=== PATIENT | male | born 1980 | race Caucasian/White ===

== ENCOUNTER 2018-06-02 17:33 | Inpatient (IN) | payer BC, OTHER ==
[~2018-06-02] VITALS: Ht 177.8 cm; Wt 72.6 kg
--- NOTE | 2018-06-02 18:50 | NUR ---
Pre-Assessment Patient is in intake office, he is fidgety and hyperverbal and states he is a little " jumpy " due to nasal inhalation of 2 lines of fentanyl ( approx 0.05mcg) 2 hours prior to arriving at approximately 4pm today 06/02/18. He is disheveled and unkempt but is able to provide history. Vital Signs: BP 130/63, HR 125, RR 18, O2 96%, T 97.8, pain is 0/10 he stands 5ft 10" tall and weighs 160lbs per standing scale. No Known allergies, full code, Reg diet He is here to withdraw from Methadone and Fentanyl Policies regarding confiscation of any controlled substances found in his belongings or person understood. No home medication brought or taken. Patient will be admitted to the unit and to room 314 under the care of Dr Rg Escobar
[2018-06-02] MEDS ORDERED: MIRALAX 17 GM POWD.PACK PO PRN (19:45)
[2018-06-02] MEDS ORDERED: ONDANSETRON 4 MG/2 ML VIAL IM PRN (19:45)
[2018-06-02] MEDS ORDERED: IBUPROFEN 600 MG TABLET PO PRN (19:45)
[2018-06-02] MEDS ORDERED: ONDANSETRON ODT 4 MG TAB.RAPDIS SL PRN (19:45)
[2018-06-02] MEDS ORDERED: MAGNESIUM HYDROXIDE 30 ML LIQUID UDC PO PRN (19:45)
[2018-06-02] MEDS ORDERED: ACETAMINOPHEN 325 MG TABLET PO PRN (19:45)
[2018-06-02] MEDS ORDERED: MAG HYDROX/AL HYDROX/SIMETH 30 ML LIQUID UDC PO PRN (19:45)
[2018-06-02] MEDS ORDERED: HYDROXYZINE PAMOATE 25 MG CAPSULE PO PRN (19:45)
[2018-06-02] MEDS ORDERED: DICYCLOMINE HCL 20 MG TABLET PO PRN (19:45)
[2018-06-02] MEDS ORDERED: LOPERAMIDE HCL 2 MG CAPSULE PO PRN ×2 (19:45)
[2018-06-02 20:00] VITALS: BP 130/63
--- NOTE | 2018-06-02 20:00 | NUR ---
Admission Note: Patient is a 38 yr old male who was admitted to [facility] @ 1913 on 06/02/18 for a medically supervised withdrawal from Opiates ( Methadone, Fentanyl and Heroin), he also states he has used Methamphetamines, he arrived here from [place] in [facility]. He states he last had Methadone last 05/30/18 @ 0600- 60mg PO, He snorted 2 lines ( approx 0.05mcg) of Fentanyl 2 hours prior to arriving at [facility] ( approximately @ 1700 06/02/18)he also states he inhaled 0.5mg of Methamphetamines @ 1600 today 06/02/18. He is hyperverbal and antsy, fidgeting and restless, he is unkempt and disheveled. When asked why he uses these substances he states" I started smoking Marijuana when I was 13 because I was curious, I had low self esteem and was a shy kid and it gave me an escape and also helped me fit in with my peers but I thought I could control it and stop when I wanted to but that was not the case, I started to use harder drugs and I started to run amuck, I had a bad attitude and got into a lot of trouble, I would steal from my friends, from my family from stores to feed my habit, it got to a point that I didn't care who I stole from as long as I could buy my drugs. He states that over the past 25yrs he has been to at least 15 rehabs ( the last one being [facility] from 01/19/18 to 02/28/18) and that he does have a lot of good sober friendships he has made over the years but he has burned so many bridges with them that he hopes he can make it up to them and do right. He says that the cause of his relapses is impulsiveness and the inability to deal with cravings. He really wants to be successful at this attempt at sobriety as he fears he may lose his job working at [employer] which he really enjoys. He states that the reason that he relapses is that he is impulsive and doesnt think before he takes any action and that there are too many triggers and he realizes that he needs to learn new coping skills, to find enjoyable activities that don't involve using drugs, he needs to learn how to cope with negative feelings and low self esteem and his social anxiety that led him to use drugs to give him a boost of self confidence. He would like to go to a 30 day Inpatient [facility] and learn how to cope with all the negative feelings, low self esteem and to learn new coping skills to make him a better member of society. Withdrawal Symptoms for him include restlessness, sweats, cramps, Insomnia, no motivation and a feeling of unhappiness. Currently he is experiencing withdrawal symptoms of blurred vision, diaphoresis, tachycardia, clammy skin, flushing, inability to sit still , tremors, dilated pupils and increased anxiety. Initial COWS 17 and patient states he is in active withdrawal and would like to start the Subutex induction as soon as possible. He states that he has had 2 accidental overdoses from methamphetamines in 2007 in which 1 resulted in him having a seizure in the back of a police car, he says he was foaming at the mouth and writhing and convulsing and thanks god he was in the police car and taken to a hospital. He has a past medical history of Hepatitis C which has been successfully treated No psychiatric complications, NO PCP, he has had suicidal thoughts in the past but did not have an active plan. Substance Use History: Methadone 60mg PO daily x 12 years last taken 05/30/18 @ 0600 Fentanyl 2 lines ( approx 0.05mcg) daily for past 3 months last consumed 06/02/18 @ 1700 Heroin IV 0.5 mg daily but has not used for 2 weeks. Methamphetamines 0.5mg Insufflation 3 x month last used 06/02/18 @ 1600 He does not take any prescription or over the counter medications nor has he brought any with him. Lung sounds clear throughout, no cough or SOB, BS present in all 4 quadrants , last BM 06/02/18 @ 1950 He has been oriented to the unit and understands the policies and procedures of [facility] and is in agreement to the rules. Urine drug screen obtained and Lab on way to draw blood for toxicology. Addendum: 06/03/18 at 0621 by XIOMARA YBARRA RN *Correction to dosage: 0.5G of heroin and 0.5G of methamphetamines NOT mg *
[2018-06-02 20:15] LABS: *AMPHETAMINE, URINE POSITIVE (NEGATIVE); *BARBITURATE, URINE NEGATIVE (NEGATIVE); *CANNABINOID, URINE NEGATIVE (NEGATIVE); *COCCAINE, URINE NEGATIVE (NEGATIVE); *OPIATE, URINE NEGATIVE (NEGATIVE); *PHENCYCLIDINE SCREEN,URINE NEGATIVE (NEGATIVE)
--- NOTE | 2018-06-02 20:30 | NUR ---
PRN Subutex/ Ativan PRN Subutex 4mg SL given for COWS score of 19 PRN Ativan 2mg PO given for CIWA 23 Patient has started to withdraw and is exhibiting symptoms: diaphoresis, clammy skin, runny nose, blurred vision, tachycardia, flushing, inability to sit still, fidgeting and tremors.
--- NOTE | 2018-06-02 20:30 | NUR ---
COWS 19/ CIWA Patient is in active withdrawal , last methadone use was 3 days ago 05/30/18 @ 0600 - 60mg PO fentanyl 0.05mcg was last consumed at 1600 today via nasal inhalation withdrawal symptoms include, blurred vision, extreme restlessness, runny nose, sensitivity to light and sound, diaphoresis, dilated pupils and bilateral hand tremors. Will initiate Subutex induction and Ativan per MD protocol
[2018-06-02] MEDS: LORAZEPAM 1 MG TABLET PO PRN (20:31)
[2018-06-02] MEDS: BUPRENORPHINE HCL 2 MG TAB.SUBL SL PRN (20:32)
[2018-06-02 21:14] LABS: BASOPHILS # (AUTO) 0.1 K/uL (0.0-8.0); BASOPHILS % (AUTO) 0.7 % (0.0-2.0); EOSINOPHILS # (AUTO) 0.1 K/uL (0.0-0.7); EOSINOPHILS % (AUTO) 0.7 % (0.0-7.0); HEMOGLOBIN 14.4 g/dL (12.5-16.3); LYMPHOCYTES # (AUTO) 3.3 K/uL (20.0-40.0); LYMPHOCYTES % (AUTO) 26.8 % (20.5-51.5); MEAN CORPUSCULAR HGB CONC 34 g/dL (32.5-36.3); MEAN CORPUSCULAR VOLUME 84.6 fL (73.0-96.2); MONOCYTES # (AUTO) 0.9 K/uL (2.0-10.0); MONOCYTES % (AUTO) 7.5 % (0.0-11.0); NEUTROPHILS % (AUTO) 64.3 % (38.5-71.5); PLATELET COUNT (AUTO) 234 K/uL (152-348); RED BLOOD CELL COUNT(AUTO) 4.97 MIL/uL (4.06-5.63); WHITE BLOOD COUNT (AUTO) 12.4 K/uL (3.6-10.2)
[2018-06-02 21:30] LABS: ETHANOL < 3 MG/DL (0-0)
--- NOTE | 2018-06-02 21:30 | NUR ---
PRN Reassess COWS now 14 CIWA 19 Patient is resting in bed, easily arousable to name, medications have taken effect and are alleviating withdrawal symptoms, will continue to monitor.
[2018-06-02 21:35] LABS: ALANINE AMINOTRANSFERASE 129 U/L (16-63); ALKALINE PHOSPHATASE 79 U/L (50-136); AMYLASE 53 U/L (25-115); ASPARTATE AMINOTRANSFERASE 172 U/L (15-37); BILIRUBIN,TOTAL 0.6 mg/dL (0.2-1.0); CARBON DIOXIDE 29 mmol/L (21-32); CHLORIDE 99 mmol/L (98-107); CREATININE 1.4 mg/dL (0.6-1.3); GLUCOSE 101 mg/dL (74-106); LIPASE 129 U/L (73-393); POTASSIUM 3.8 mmol/L (3.5-5.1); TOTAL PROTEIN, SERUM 7.7 g/dL (6.4-8.2); UREA NITROGEN, BLOOD 31 mg/dL (7-18)
[2018-06-02 21:46] LABS: THYROID STIMULATING HORMONE 3.575 mIU/mL (0.358-3.740)
--- NOTE | 2018-06-03 | NUR ---
COWS / VS deferred, patient is in a deep sleep, breathing unlabored, RR 15
[2018-06-03 04:00] VITALS: BP 110/78
--- NOTE | 2018-06-03 04:00 | NUR ---
COWS 16 PRN Subutex 4mg SL given per protocol, withdrawal symptoms present as runny nose, teary eyes, diaphoresis, tremors, goosebumps , stomach cramps and restlessness
--- NOTE | 2018-06-03 04:10 | NUR ---
PRN Subutex/Ativan PRN Subutex 4mg SL given per protocol, withdrawal symptoms present as runny nose, teary eyes, diaphoresis, tremors, goosebumps , stomach cramps and restlessness Ativan 2mg PO given for CIWA 18 and s/s of withdrawal as noted above
[2018-06-03] MEDS: BUPRENORPHINE HCL 2 MG TAB.SUBL SL PRN (04:13)
[2018-06-03] MEDS: LORAZEPAM 1 MG TABLET PO PRN (04:13)
--- NOTE | 2018-06-03 05:10 | NUR ---
PRN Reassess Patient has fallen back into a sound sleep, medications effective, breathing even and unlabored.Call light within reach
--- NOTE | 2018-06-03 07:19 | NUR ---
End of Shift: Patient is a 38 yr old male who was admitted to [facility] on 06/02/18 for a medically supervised withdrawal from Opiates ( Methadone, Fentanyl and Heroin ) He has NKA, Full code, regular diet, seizure and fall precautions. PRN medications given on this shift : Subutex 4mg SL x2, Ativan 2mg PO x2. Patient's withdrawal symptoms have included restlessness, lethargy, stuffy nose, teary eyes, dilated pupils, diaphoresis and anxiety and agitation. His last COWS was 16 @ 0400. He had a fluid intake of 1500ML,3 Voids and 1 BM and he slept for 8 hours. No taper has been placed, Dr Escobar will assess patient today, PRN medication available. Continue to follow MD plan of care and offer support as needed. Endorsed to day shift nurse.
--- NOTE | 2018-06-03 07:36 | NUR ---
START OF SHIFT Pt is a 38 yr old male, admitted on 06/02/18 for medically supervised withdrawal from Methadone and Fentanyl. Pt is on PRN's for s/s of w/d. Received report from weight shifter nurse. Pt received Subutex 4mg SL PRN x2 and Ativan 2mg PO PRN x2 during the night. Last COWS score was 16 at 0400. Pt slept for 8 hrs. Pt is currently in bed sleeping with respirations even and unlabored. Skin is intact, warm and moist to touch. Pt's room is noted disheveled with multiple open food wrappers on bedside table. Safety precautions observed. Call light is within reach. Will continue to monitor.
[2018-06-03 08:00] VITALS: BP 118/72
[2018-06-03] MEDS ORDERED: TUBERCULIN,PURIF.PROT.DERIV. 5 TU/0.1 ML TEST ID ONE (09:00)
--- NOTE | 2018-06-03 09:30 | NUR ---
COWS 14 Pt is noted with restlessness and is shifting in bed, fine tremors are seen. Pt is c/o feeling tired and states, "I haven't been sleeping well, plus I'm coming down from Meth". Pt is c/o anxiety, stuffy nose, sweats and chills. COWS score was 14. Encouraged increase fluid intake for hydration. Will continue to monitor.
[2018-06-03] MEDS: MULTIVITAMINS,THERAPEUTIC TABLET PO SCH (09:36)
--- NOTE | 2018-06-03 11:16 | NUR ---
Clarification of Methadone Use History Patient states that he has been using Methadone 60mg PO daily for the past 3 months. He was in treatment at [facility] from 01/09/18-02/28/18. He did not use any substances while he was there, but relapsed immediately upon discharge. Patient first began using Methadone 12 years ago.
[2018-06-03 12:00] VITALS: BP 125/67
--- NOTE | 2018-06-03 12:00 | NUR ---
COWS SCORE 11 Pt is observed with anxiety m/b difficulty staying still. Pt is c/o restlessness, sweats, chills, stuffy nose, fatigue and loss of appetite. COWS score was 11. Pt is noted disheveled with dirty hands. Pt hands are also noted with non-pitted edema. Will continue to f/u with Subutex 4mg SL as scheduled at 1300. Encouraged increase fluid intake for hydration.
[2018-06-03] MEDS: BUPRENORPHINE HCL 2 MG TAB.SUBL SL SCH ×3 (12:57→20:54)
[2018-06-03] MEDS ORDERED: 5 DAY TAPER BUPRENORPHINE -SERENITY PROTOCOL SL PRN (13:00)
[2018-06-03 16:00] VITALS: BP 100/55
--- NOTE | 2018-06-03 19:13 | NUR ---
END OF SHIFT Pt is a 38 yr old male, AA&Ox4. Pt was admitted on 06/02/18 for medically supervised withdrawal from Methadone and fentanyl and started on 5 day Subutex taper as ordered. Pt has been observed with increase fatigue and remained in bed throughout the day. Pt was observed with restlessness, fidgety, fine tremors on BUE, stuffy nose, sweats and chills. Pt was also c/o anxiety. No PRNs were given. Pt was noted with non-pitted edema on both hands, MD was made aware with orders of Labs to be drawn in the morning. Pt was encouraged increase fluid intake for hydration. Last COWS score was 8 at 1600. Safety precautions observed. Call light is within reach. Endorsed to police shift commander nurse to continue with care.
--- NOTE | 2018-06-03 19:30 | NUR ---
START OF SHIFT Pt is a 38 y/o male admitted on 06/02/18 for opiate withdrawal. Pt will continue a 5 day Subutex taper. Upon rounds Pt was found in room laying in bed watching TV. Pt is isolative and is withdrawn. Pt presents with anxiety, agitation, flushed skin, and is restless. Last COWS 8. No PRN medication were given during day shift. Scheduled medication are due. Safety measures in place. Call light within reach. Will continue to monitor.
[2018-06-03 20:00] VITALS: BP 113/57
--- NOTE | 2018-06-03 20:00 | NUR ---
COWS 8 Pt presents with anxiety, agitation, flushed skin, and is restless. No other complaints by the Pt. No signs of acute distress noted. Safety measures in place. Call light within reach. Will continue to monitor.
--- NOTE | 2018-06-04 | NUR ---
COWS DEFERRED AND VITAL SIGNS REFUSED Patient is noted in bed with eyes closed. Breathing even and non labored. COWS and vital signs not able to be completed per order. Safety measures in place. Call light within reach. Will continue to monitor.
--- NOTE | 2018-06-04 04:00 | NUR ---
COWS DEFERRED AND VITAL SIGNS REFUSED Patient is noted in bed with eyes closed. Breathing even and non labored. COWS was deferred and vital signs were refused not able to be completed per order. Safety measures in place. Call light within reach. Will continue to monitor.
--- NOTE | 2018-06-04 06:59 | NUR ---
END OF SIFT Pt is a 38 y/o male admitted on 06/02/18 for opiate withdrawal. Pt will continue a 5 day Subutex taper. Pt presented with anxiety, agitation, flushed skin, and restlessness. Last COWS 8. No PRN medication were given during shift. Pt slept 10 hours. Intake 1000 ml, void 2, stool 0. Safety measures in place. Call light within reach. Pt's needs have been met. Endorsed to day shift nurse.
--- NOTE | 2018-06-04 07:35 | NUR ---
START OF SHIFT Pt is a 38 yr old male, AA&Ox4. pt was admitted on 06/02/18 for medically supervised withdrawal from methadone and fentanyl and is on 5 day Subutex taper as ordered. Received report from night time nanny nurse. No PRN's were given during the night. Last COWS score was 8 and pt slept for 10 hrs. Pt states of sleeping well during the night but woke up anxious. Pt states of feeling anxious and depressed this morning and states he is afraid of losing his job. Pt is noted fidgety and is constant shifting in bed. Pt is observed disheveled and odorous and remains in dirty clothes. Pt was encouraged to shower. Multiple open food wrappers were on bedside table and on the floor. safety precautions observed. Call light is within reach. Will continue to monitor.
[2018-06-04 08:00] VITALS: BP 110/64
[2018-06-04 08:06] LABS: BILIRUBIN,TOTAL 0.4 mg/dL (0.2-1.0); POTASSIUM 3.7 mmol/L (3.5-5.1); TOTAL PROTEIN, SERUM 6.5 g/dL (6.4-8.2)
[2018-06-04 08:06] LABS: HEPATITIS B SURFACE AG Negative (Negative)
[2018-06-04] MEDS: MULTIVITAMINS,THERAPEUTIC TABLET PO SCH (08:53)
[2018-06-04] MEDS: BUPRENORPHINE HCL 2 MG TAB.SUBL SL SCH ×3 (08:54→21:43)
[2018-06-04] MEDS ORDERED: METHOCARBAMOL 750 MG TABLET PO PRN (09:15)
[2018-06-04] MEDS ORDERED: LORAZEPAM 1 MG TABLET PO ONE (09:15)
--- NOTE | 2018-06-04 09:26 | NUR ---
ATIVAN 2MG ONE TIME Pt was noted with increase anxiety, restlessness, sweating, flushed skin, and enlarged pupils. Pt is fidgety and is constant shifting in bed. Reported to Dr. Escobar and received a telephone order for Ativan 2mg PO one time. new order was noted and carried out. Pt received Ativan 2mg PO x1 and was malik well. Pt was encouraged increase fluid intake for hydration. COWS score was 13. Pt is noted disheveled and odorous with dirty clothes on, pt was encouraged to shower. Pt agreed to shower sometime today. Safety precautions observed. Will continue to monitor.
--- NOTE | 2018-06-04 10:36 | NUR ---
ATIVAN RE-ASSESSMENT Ativan 2mg PO x1 was effective. Pt is currently in bed resting with respirations even and unlabored. Pt states, "I feel a little better". Pt continues to be observed with restless legs and fidgety. Encouraged increase fluid intake. will continue to monitor.
[2018-06-04 12:00] VITALS: BP 126/75
--- NOTE | 2018-06-04 12:00 | NUR ---
COWS ASSESSMENT Pt is c/o anxiety, sweats, restlessness, and loss of appetite. Pt is noted fidgety, flushed skin, and disheveled. Last COWS score was 12. pt was encouraged increase fluid intake for hydration. Will continue to monitor.
[2018-06-04 16:00] VITALS: BP 131/84
--- NOTE | 2018-06-04 19:05 | NUR ---
END OF SHIFT Pt is a 38 yr old male, AA&Ox4. Pt was admitted on 06/02/18 for medically supervised withdrawal from Methadone and fentanyl and is on 5 day Subutex taper as ordered. Pt was ac/o anxiety, agitation, feeling depressed, restlessness, stuffy nose, loss of appetite and sweats in the morning. Subutex as scheduled was given and has been effective for s/s of w/d. Pt also received Ativan 2mg PO x1 at 0926 and was effective. Last COWS score was 10 at 1600. Pt was able to shower in the afternoon. Pt has been cooperative with medication regimen. Pt was encouraged increase fluid intake for hydration. Safety precautions observed. Call light is within reach. Endorsed to overnight caregiver nurse to continue with care.
[2018-06-04 20:00] VITALS: BP 119/77
--- NOTE | 2018-06-04 20:00 | NUR ---
Start of Shift Note Received a 38 y/o male px, admitted for medically supervised withdrawal from opiates. He also use methamphetamines. Px was placed on 5 day Subutex taper, started on 06/03/2018. Px is tolerating it. Last reported COWS 10 by AM shift nurse. During the rounds at 2000, px is asleep on bed in left side lying position. Few drinks noted on top of the bed side table. Bed on lowest position, side rails up 2x and call light within reach. Well continue to monitor.
--- NOTE | 2018-06-04 20:00 | NUR ---
COWS deferred COWS deferred due to the px is asleep, to asses if the px is awake per doctor's order. will continue to monitor.
--- NOTE | 2018-06-04 21:40 | NUR ---
COWS 10 During the assessment, px just woke. He appears anxious. Px stated that his anxiety is 3/10. Px has restless legs complained of runny nose and UT= 81. will continue to monitor
--- NOTE | 2018-06-04 21:40 | NUR ---
Px wakes up Px woke up. Px appears anxious. He is unshaven. He stated that his anxiety is mild at 3/10. He had sweats at night and runny nose. LA= 81. will continue to monitor
[2018-06-05] VITALS: BP 114/74
--- NOTE | 2018-06-05 | NUR ---
COWS deferred COWS deferred due to the px is asleep, to asses if the px is awake per doctor's order. will continue to monitor.
[2018-06-05 04:00] VITALS: BP 118/74
--- NOTE | 2018-06-05 04:00 | NUR ---
COWS deferred COWS deferred due to the px is asleep, to asses if the px is awake per doctor's order. will continue to monitor.
--- NOTE | 2018-06-05 07:05 | NUR ---
End of Shift Note During the shift, px had no complaints. He didnt receive any PRN medications. He slept most of the time. Oral intake of 1,000 ml, voided 2x, No BM. He slept for total of 10 hours. Last COWS 8. At 0630, px is asleep on bed in right side lying position. Bed on lowest position and call light within reach. Well continue to monitor. Px endorsed to AM shift nurse.
[2018-06-05 08:00] VITALS: BP 119/79
--- NOTE | 2018-06-05 08:00 | NUR ---
START OF SHIFT Pt is a 38 yr old male, AA&Ox4. pt was admitted on 06/02/18 for medically supervised withdrawal from methadone and fentanyl and is on 5 day Subutex taper as ordered. Received report from night clerk nurse. No PRN's were given during the night. Last COWS score was 8 and pt slept for 10 hrs. Pt states of sleeping well during the night but woke up anxious. Pt is noted fidgety and with restless legs. Pt is c/o muscle aches, stuffy nose, loss of appetite and sweats. COWS score this morning is 10. Pt was encouraged to drink plenty of fluids for hydration. Safety precautions observed. Call light is within reach. Will continue to monitor.
[2018-06-05] MEDS: MULTIVITAMINS,THERAPEUTIC TABLET PO SCH (08:26)
--- NOTE | 2018-06-05 08:26 | NUR ---
PRN GIVEN Pt was noted with restless legs and was c/o muscle aching on BLE. Robaxin 750mg PO PRN was given as ordered. Encouraged increase fluid intake. Will continue to monitor.
[2018-06-05] MEDS ORDERED: BUPRENORPHINE HCL 2 MG TAB.SUBL SL SCH (09:00)
--- NOTE | 2018-06-05 09:26 | NUR ---
PRN RE-ASSESSMENT Robaxin PRN was effective. Pt denies any pain on BLE but continue to be observed with restless legs. Will continue to monitor.
[2018-06-05 12:00] VITALS: BP 124/73
[2018-06-05] MEDS: BUPRENORPHINE HCL 2 MG TAB.SUBL SL SCH ×2 (15:05→21:15)
[2018-06-05] MEDS: CLONIDINE HCL 0.1 MG TABLET PO PRN (15:13)
--- NOTE | 2018-06-05 15:14 | NUR ---
PRN GIVEN Pt is c/o increase anxiety and agitation. Pt states he had to close the door to his room and yell out loud to release his anger. Pt states, "I'm mad at myself for putting myself in this position again" Pt is noted fidgety in bed. Clonidine 0.1mg PO PRN and Vistaril 25mg PO PRN was given as ordered, Encouraged increase fluid intake. Pt was encouraged to attend group therapy. Will continue to monitor.
[2018-06-05 16:00] VITALS: BP 112/66
--- NOTE | 2018-06-05 16:14 | NUR ---
PRN RE-ASSESSMENT Clonidine 0.1mg PO PRN and Vistaril 25mg PO PRN was effective. Pt states, "I feel better" Pt continues to be observed with restless legs. Will continue to monitor.
--- NOTE | 2018-06-05 18:59 | NUR ---
END OF SHIFT Pt is a 38 yr old male, AA&Ox4. Pt was admitted on 06/02/18 for medically supervised withdrawal from Methadone and Fentanyl and is on 5 day Subutex taper as ordered. Pt has been cooperative with medication regimen. Pt was encouraged to attend group therapy but pt refused to attend. Pt was ac/o anxiety, agitation, feeling depressed, restlessness, stuffy nose, loss of appetite and sweats. Pt was observed restless legs, fine tremors and flat affect. Pt was given Robaxin 750mg PO PRN, Clonidine 0.1mg PO PRN and Vistaril 25mg PO PRN. Medication was effective. Last COWS score was 8 at 1600. Pt was encouraged increase fluid intake for hydration. Safety precautions observed. Call light is within reach. Endorsed to security shift manager nurse to continue with care.
[2018-06-05 20:00] VITALS: BP 111/69
--- NOTE | 2018-06-05 20:00 | NUR ---
Start of Shift Note Received a 38 y/o male px, admitted for medically supervised withdrawal from opiates. He also use methamphetamines. Px was placed on 5 day Subutex taper, started on 06/03/2018. Px is tolerating it. Last reported COWS 8 by AM shift nurse. During the rounds at 2000, px is asleep on bed in right side lying position. Few drinks noted on top of the bed side table. Bed on lowest position and call light within reach. Well continue to monitor.
--- NOTE | 2018-06-05 21:10 | NUR ---
COWS 8 Px woke up. Px appears anxious. He is unshaven. He stated that his anxiety is mild. He has sweats and runny nose. Mild bilateral hand tremors noted. KS= 79. will continue to monitor
[2018-06-05] MEDS: diphenhydrAMINE 50 MG CAPSULE PO PRN (21:15)
--- NOTE | 2018-06-05 21:15 | NUR ---
PRN Benadryl Px received Benadryl 50 mg PO for insomnia. will continue to monitor
--- NOTE | 2018-06-05 21:45 | NUR ---
COWS 8 reassessment Px still appears anxious. He stated that his anxiety is still mild. He had sweats at night and runny nose. Mild bilateral hand tremors noted. IN= 84. will continue to monitor
[2018-06-06] VITALS: BP 102/66
--- NOTE | 2018-06-06 | NUR ---
COWS deferred COWS deferred due to the px is asleep, to asses if the px is awake per doctor's order. will continue to monitor.
[2018-06-06 04:00] VITALS: BP 109/67
--- NOTE | 2018-06-06 04:00 | NUR ---
COWS deferred COWS deferred due to the px is asleep, to asses if the px is awake per doctor's order. will continue to monitor.
--- NOTE | 2018-06-06 07:05 | NUR ---
End of Shift Note During the shift at 2114, maynor received Benadryl 50 mg PO for insomnia. It was effective. He slept most of the time. Oral intake of 900 ml, voided 2x, No BM. He slept for total of 9 hours. Last COWS 8. At 0630, px is awake and wanted to smoke. Bed on lowest position and call light within reach. Well continue to monitor. Px endorsed to AM shift nurse.
[2018-06-06 07:14] LABS: BASOPHILS % (AUTO) 0.5 % (0.0-2.0); EOSINOPHILS # (AUTO) 0.2 K/uL (0.0-0.7); EOSINOPHILS % (AUTO) 1.9 % (0.0-7.0); HEMATOCRIT 44.3 % (36.7-47.1); HEMOGLOBIN 15.3 g/dL (12.5-16.3); LYMPHOCYTES # (AUTO) 3.4 K/uL (20.0-40.0); LYMPHOCYTES % (AUTO) 34.9 % (20.5-51.5); MEAN CORPUSCULAR HEMOGLOBIN 29.2 uug (23.8-33.4); MEAN CORPUSCULAR HGB CONC 35 g/dL (32.5-36.3); MEAN CORPUSCULAR VOLUME 84.6 fL (73.0-96.2); MONOCYTES # (AUTO) 0.6 K/uL (2.0-10.0); NEUTROPHILS # (AUTO) 5.6 K/uL (1.8-8.9); NEUTROPHILS % (AUTO) 56.7 % (38.5-71.5); PLATELET COUNT (AUTO) 199 K/uL (152-348); RED BLOOD CELL COUNT(AUTO) 5.24 MIL/uL (4.06-5.63); WHITE BLOOD COUNT (AUTO) 9.9 K/uL (3.6-10.2)
[2018-06-06 07:30] LABS: BILIRUBIN,TOTAL 0.2 mg/dL (0.2-1.0); POTASSIUM 3.6 mmol/L (3.5-5.1); TOTAL PROTEIN, SERUM 6.7 g/dL (6.4-8.2)
--- NOTE | 2018-06-06 07:58 | NUR ---
Start of Shift Note: Report received from mini shifter nurse. Pt is a 38M, admitted for Opiate withdrawal. Per mini shifter nurse, pts last COWS was 8. Pt is currently on Subutex taper to manage withdrawal symptoms. Upon start of shift, pt was in bed watching TV. During assessment, pt is AOx4, breathing even and unlabored. Pt stated I had a good night of sleep. I just keep feeling depressed. Ill try to go to groups today. Pt has no complaints at this time. Pt slept for 9 hours. Bed in lowest position. Side rails up x2. Call light functioning and within reach. All needs attended and met. Will continue to monitor.
[2018-06-06 08:00] VITALS: BP 128/88
--- NOTE | 2018-06-06 08:00 | NUR ---
COWS 7 Pt noted with slight restlessness, yawning, some irritability. COWS 7
[2018-06-06] MEDS: MULTIVITAMINS,THERAPEUTIC TABLET PO SCH (08:30)
[2018-06-06] MEDS: BUPRENORPHINE HCL 2 MG TAB.SUBL SL SCH ×3 (08:31→20:55)
[2018-06-06 12:00] VITALS: BP 125/88
--- NOTE | 2018-06-06 12:00 | NUR ---
COWS 8 Pt noted with inability to sit still, some irritability. COWS 8
--- NOTE | 2018-06-06 14:00 | NUR ---
Fall Episode: EVS was cleaning the floor of hallway. Pt walked out of room because EVS was about to clean his room. Pt tripped on the way out of his door. Pt landed on the floor but was able to brace fall with his right hand. Pt had an old wound on R middle finger which split open. Pictures taken and placed in chart. MD was on floor and was able to assess pt. No new orders. Pt given bandaid for the cut. Wound was no longer bleeding by the time Bandaid was placed. Will continue to monitor.
[2018-06-06 16:00] VITALS: BP 116/74
--- NOTE | 2018-06-06 16:00 | NUR ---
COWS 6 Pt noted with restlessness, some irritability. COWS 6
--- NOTE | 2018-06-06 19:09 | NUR ---
End of Shift Notes: Pt currently in H+I panel activity. Pt was able to attend morning group activity. Pt had a fall episode earlier. Pt noted to be bleeding on existing cut on R middle finger. Pictures taken and placed in chart. No other injury noted. MD aware. No PRNs given during shift. Last COWS was 6 at 1600. Pt continues on Subutex taper to manage withdrawal symptoms. All other needs attended and met. Bed in lowest position. Side rails up x2. Call light functioning and within reach. Report given to hourly shift nurse.
--- NOTE | 2018-06-06 19:30 | NUR ---
START OF SHIFT Received 38 year old male patient admitted on 06/02/18 for Methadone, Fentanyl and Heroin withdrawal. Pt is full code with NKA. Pt is alert and oriented x4. Pt is noted with anxiety, restlessness, and flushed face. Per endorsement pt did not receive or request PRN medications. He is receiving a 5 day Subutex taper and is tolerating well. Last COWS:6 at 1600. Breathing is even and unlabored, safety measures in place. Will monitor.
[2018-06-06 20:00] VITALS: BP 123/71
--- NOTE | 2018-06-06 20:00 | NUR ---
COWS Pt complains of flushed face, anxiety and restlessness. COWS:6. Will monitor.
[2018-06-06] MEDS: diphenhydrAMINE 50 MG CAPSULE PO PRN (20:55)
--- NOTE | 2018-06-06 20:55 | NUR ---
PRN BENADRYL Pt complains of inability to sleep. PRN Benadryl administered as ordered. Will monitor effectiveness.
--- NOTE | 2018-06-06 21:55 | NUR ---
PRN BENADRYL REASSESSMENT PRN medication effective. Pt is lying in bed with eyes closed noted to be asleep. Breathing even and unlabored, safety measures in place. Will monitor.
[2018-06-07] VITALS: BP 115/67
--- NOTE | 2018-06-07 | NUR ---
COWS DEFERRED Pt lying in bed with eyes closed noted to be asleep. Breathing is even and unlabored, safety measures in place. Will monitor.
[2018-06-07 04:00] VITALS: BP 110/62
--- NOTE | 2018-06-07 04:00 | NUR ---
COWS DEFERRED 0400 COWS deferred. Pt lying in bed with eyes closed noted to be asleep. Breathing is even and unlabored, safety measures in place. Will monitor.
--- NOTE | 2018-06-07 07:17 | NUR ---
END OF SHIFT Pt is a 38 year old male patient admitted on 06/02/18 for Methadone, Fentanyl and Heroin withdrawal. Pt is full code with NKA. Pt remains alert and oriented x4. He was noted with anxiety, restlessness, and flushed face during the shift. At 2054 he received PRN Benadryl. He continues on a 5 day Subutex taper and is tolerating well. He slept a total of 8 hrs, Intake:855mL, Void: x1, BM:0, Last COWS:6 at 1999. Breathing is even and unlabored, safety measures in place. Endorsed to AM shift.
--- NOTE | 2018-06-07 07:57 | NUR ---
BEGINNING OF SHIFT Patient endorsement report received from night nurse nurse, all pertinent information was discussed. Patient with admitting Dx: Opiate withdrawal, and substance use of methadone, and methamphetamine. Patient continues with ongoing 5 day Subutex taper as ordered, continues under close observation. Patient received PRN:Benadryl. Patient, slept for 8 hours. Last cow score of: 6. Safety measures are in place. Patient S/P fall incident on 06/06/2018, will educate regarding safety precautions, and fall prevention. call light with in reach, patient received awake, alert and oriented x4, educated regarding plan of care for the day and medication regimen with good verbal understanding. Safety measures are in place. call light with in reach, will continue to monitor closely.
[2018-06-07 08:25] VITALS: BP 112/77
[2018-06-07] MEDS: MULTIVITAMINS,THERAPEUTIC TABLET PO SCH (08:27)
[2018-06-07] MEDS ORDERED: BUPRENORPHINE HCL 2 MG TAB.SUBL SL SCH (09:00)
--- NOTE | 2018-06-07 09:00 | NUR ---
COW ASSESSMENT Patient in room, patient presents disheveled, room appearance was noted with clothes thrown on floor, and inability to perform ADLs without prompting. Patient has angry facial expression. Noted with angry affect. Patient noted exhibiting the following s/sx of withdrawal: difficulty sitting still, fidgety, restless, mild bone and joint aches, moist eyes, tremors that can be felt but not seen, anxiety and agitation, with COW score of: 8. Continues under close observation. Received last dose of Subutex this morning, will continue to monitor closely.
--- NOTE | 2018-06-07 13:00 | NUR ---
COW ASSESSMENT Patient continues to exhibit the following: difficulty sitting still, fidgety, restless, mild bone and joint aches, moist eyes, tremors that can be felt but not seen, anxiety and agitation, with COW score of: 8.
[2018-06-07 13:45] VITALS: BP 134/85
--- NOTE | 2018-06-07 17:00 | NUR ---
COW ASSESSMENT Still noted presenting with: difficulty sitting still, fidgety, restless, mild bone and joint aches, moist eyes, tremors that can be felt but not seen, anxiety and agitation, with COW score of: 8. Will continue to monitor.
[2018-06-07 17:02] VITALS: BP 129/67
--- NOTE | 2018-06-07 19:03 | NUR ---
END OF SHIFT Patient monitored closely during shift. Noted disheveled, room appearance was noted with clothes thrown on floor, and inability to perform ADLs without prompting. Encouraged to self groom and maintained of personal area. Patient has angry facial expression. Noted with angry affect. Provided with calming reassurance as needed and encouraged to develop coping skills and utilization of non pharmacological intervention. Patient noted exhibiting the following s/sx of withdrawal: difficulty sitting still, fidgety, restless, mild bone and joint aches, moist eyes, tremors that can be felt but not seen, anxiety and agitation, with last COW score of: 8. Continues under close observation. Received last dose of Subutex this morning. Patient is scheduled to be discharged tomorrow morning. Encouraged to attend group therapies/sessions to learn new coping skills to prevent relapse. Safety measures are in place. Patient endorsed to operator helper nurse, all pertinent information discussed.
--- NOTE | 2018-06-07 19:51 | NUR ---
START OF SHIFT NOTE Rcvd report from outgoing nurse. Pt is a 38 y/o male A/O to person, place, time, and purpose. Pt was admitted for medically supervised withdrawal from Opiates. Pt also has a substance abuse h/o Methamphetamine use. Pt is being discharged on 06/08/18. Pt has been presenting w/ anxiety, agitation, restlessness, and body aches. Pt rcvd no PRN medications during previous shift. Last COWS 8 @ 1600. Call light is within reach. Pt will continue to be monitored and needs met.
[2018-06-07 20:35] VITALS: BP 125/80
--- NOTE | 2018-06-07 20:35 | NUR ---
COWS ASSESSMENT COWS 7. Pt has been presenting w/ anxiety, agitation, restlessness, and body aches. V/S: T:98.1, P:62, RR:16, SPO2:98, BP:125/80.
[2018-06-07] MEDS: diphenhydrAMINE 50 MG CAPSULE PO PRN (21:05)
[2018-06-07] MEDS: CLONIDINE HCL 0.1 MG TABLET PO PRN (21:05)
--- NOTE | 2018-06-07 21:05 | NUR ---
PRN BENADRYL AND CLONIDINE ADMINISTRATION Benadryl 50mg and Clonidine 0.1mg given for anxiety leading to insomnia. Pt states "I don't think I can fall asleep tonight". Will reassess pt in 1 hr.
--- NOTE | 2018-06-07 22:05 | NUR ---
PRN BENADRYL AND CLONIDINE REASSESSMENT Pt is in bed w/ his eyes closed. Pt's respirations are unlabored and even.
--- NOTE | 2018-06-08 00:08 | NUR ---
COWS DEFERRED Pt is in bed w/ his eyes closed. Pt's respirations are unlabored and even.
--- NOTE | 2018-06-08 04:06 | NUR ---
COWS DEFERRED. V/S REFUSED Pt is in bed w/ his eyes closed. Pt's respirations are unlabored and even.
--- NOTE | 2018-06-08 07:15 | NUR ---
END OF SHIFT NOTE Endorsed pt to oncoming nurse. Pt is a 38 y/o male A/O to person, place, time, and purpose. Pt was admitted for medically supervised withdrawal from Opiates. Pt also has a substance abuse h/o Methamphetamine use. Pt is being discharged on 06/08/18. Pt has been presenting w/ anxiety, agitation, restlessness, and body aches. PRN Clonidine and Benadryl were given and noted effective. Pt denies any S/I or H/I. Pts fluid intake was 1450ml and he voided 2 times. Pt slept for 9 hrs. Last COWS 7 @ 2000. Call light is within reach.
--- NOTE | 2018-06-08 07:52 | NUR ---
BEGINNING OF SHIFT Patient received awake, alert and oriented x4, educated regarding plan of care for the day and medication regimen with good verbal understanding. patient is scheduled to be discharged this morning, noted self motivated towards sobriety. Patient endorsement report received from night worker nurse, all pertinent information was discussed. Patient with admitting Dx: Opiate withdrawal, and substance use of methadone, and methamphetamine. Patient completed 5 day Subutex taper. Patient received PRN:Benadryl, and clonidine. Patient, slept for 9 hours. Last cow score of: 7. Safety measures are in place. call light with in reach, Safety measures are in place. call light with in reach, will continue to monitor closely.
[2018-06-08 08:22] VITALS: BP 125/77
[2018-06-08] MEDS: MULTIVITAMINS,THERAPEUTIC TABLET PO SCH (09:06)
--- NOTE | 2018-06-08 09:34 | NUR ---
DISCHARGE Patient discharged off the unit in stable condition at 0934, in stable condition, not in any apparent acute distress. Prior to discharge patient was provided with education and teaching regarding all discharge instructions with good verbal understanding. Patient noted self motivated towards sobriety. Scheduled morning medications were administered as ordered. Patients discharge instructions were placed in personal duffel bag. vital signs WNL, Last COW score of: 5. Off the unit in stable condition at 0934.
== END 2018-06-08 09:34 | disposition other institution (70) | DRG 895 ==
LOC: SRC 18:19
PROVIDERS: ADMIT Family Medicine Addiction Medicine; ATTEND Family Medicine Addiction Medicine
PROC: HZ2ZZZZ Detoxification Services for Substance Abuse Treatment (ICD-10-PCS; principal; 2018-06-02)
PROC: HZ41ZZZ Group Counseling for Substance Abuse Treatment, Behavioral (ICD-10-PCS; 2018-06-04)
DX: F11.23 Opioid dependence with withdrawal (principal); F41.9 Anxiety disorder, unspecified; Z59.0 Homelessness; F17.210 Nicotine dependence, cigarettes, uncomplicated; Z91.89 Other specified personal risk factors, not elsewhere classified; E86.0 Dehydration; F31.9 Bipolar disorder, unspecified; R74.0 Nonspecific elevation of levels of transaminase and lactic acid dehydrogenase [LDH]; F15.10 Other stimulant abuse, uncomplicated; Z86.19 Personal history of other infectious and parasitic diseases
CPT/HCPCS: 36415; 70030-TC; 80307; 80324; 83690; 83735; 84443; 85025; 86580; 86592; 86705; 86803; 87340; 87806; A4663; G0480; Q0163